=== PATIENT | female | born 1995 | race Caucasian/White ===

== ENCOUNTER 2020-09-06 07:50 | Emergency (ER) | payer OTHER ==
[~2020-09-06 07:50] MED LIST: PREDNISONE 50 M50 MG PO
== END 2020-09-06 08:59 | disposition home or self-care (01) ==
LOC: ER1 07:50
DX: O99.891 Other specified diseases and conditions complicating pregnancy (principal); N89.8 Other specified noninflammatory disorders of vagina; Z3A.12 12 weeks gestation of pregnancy
CPT/HCPCS: 81001; 84702; 86900; 86901; 87086; 99284

== ENCOUNTER 2021-03-11 16:36 | Inpatient (IN) | payer OTHER ==
[~2021-03-11] VITALS: Ht 157.5 cm; Wt 90.7 kg
[2021-03-11 17:32] LABS: HEMOGLOBIN 12.6 gm/dl (12.3-15.3); RED BLOOD COUNT 3.96 M/UL (4.00-5.10); WHITE BLOOD COUNT 18.9 K/UL (4.5-11.0)
[2021-03-11] MEDS ORDERED: ZYRTEC10 MG PO (18:01)
[2021-03-13] MEDS ORDERED: IBUPROFEN600 MG PO (04:53)
[2021-03-13] MEDS ORDERED: PERCOCET 5/325 T1 EA PO (04:53)
[2021-03-13] MEDS ORDERED: COLACE 100MG C100 MG PO (04:53)
[2021-03-13] MEDS ORDERED: FERROUS SULFAT325 MG PO (04:53)
[2021-03-14 04:20] LABS: HEMOGLOBIN 9.8 gm/dl (12.3-15.3)
== END 2021-03-15 13:40 | disposition home or self-care (01) | DRG 787 ==
LOC: GENOP 16:36 → OB 17:05
PROVIDERS: ADMIT Obstetrics & Gynecology
PROC: 10H07YZ Insertion of Other Device into Products of Conception, Via Natural or Artificial Opening (ICD-10-PCS; 2021-03-13)
PROC: 10D00Z1 Extraction of Products of Conception, Low, Open Approach (ICD-10-PCS; principal; 2021-03-13 03:38)
DX: O99.824 Streptococcus B carrier state complicating childbirth (principal); D62 Acute posthemorrhagic anemia; Z3A.39 39 weeks gestation of pregnancy; Z37.0 Single live birth; O99.891 Other specified diseases and conditions complicating pregnancy; M19.90 Unspecified osteoarthritis, unspecified site; M48.00 Spinal stenosis, site unspecified; O99.02 Anemia complicating childbirth; K58.9 Irritable bowel syndrome, unspecified; O99.613 Diseases of the digestive system complicating pregnancy, third trimester; Z91.040 Latex allergy status; O69.81X0 Labor and delivery complicated by cord around neck, without compression, not applicable or unspecified
CPT/HCPCS: 36415; 81001; 82800; 85014; 85018; 85025; 85461; 86850; 86900; 86901; C9113; G0378; J0595; J0690; J1170; J2210; J2405; J2590; J2704; J2790; J3010; J7120